=== PATIENT | male | born 1945 | race Caucasian/White ===

== ENCOUNTER 2020-08-21 20:29 | Inpatient (IN) | payer MEDICARE ==
[~2020-08-21] VITALS: Ht 190.5 cm; Wt 167.9 kg
[~2020-08-21 20:29] MED LIST: CELEXA20 MG PO; GLUCOPHAGE850 MG PO; HCTZ12.5 MG PO; KEPPRA250 MG PO; KLONOPIN0.5 MG PO; MIRAPEX0.25 MG PO; NEURONTIN300 MG PO; NORVASC5 MG PO; PRINIVIL20 MG PO; REQUIP0.25 MG PO; TRIAMCINOLONE 080 GM TOP; VENTOLIN (2.5 MG/3 M INH
[2020-08-21 21:10] LABS: BASOPHIL 0.1 % (0-2); EOSINOPHIL 0 % (0-7); HCT 39.7 % (42.0-52.0); HGB 13.8 g/dl (13.2-18.0); LYMPHOCYTE 6.9 % (15-48); MCH 31.9 pg (25.0-31.0); MCHC 34.8 g/dL (32.0-36.0); MCV 91.9 fL (78.0-100.0); MONOCYTE 7.5 % (0-12); MPV 10.6 fL (6.0-9.5); NRBC 0; PLT 230 K/uL (150-400); RBC 4.32 M/uL (4.70-6.00); RDW 12.6 % (11.5-14.0); WBC 12.2 K/uL (4.0-10.5)
[2020-08-21 21:14] LABS: INR 1.23 (0.9-1.2); PROTHROMBIN TIME 14.7 SECONDS (11.4-13.6)
[2020-08-21 21:15] LABS: PTT 34.8 SECONDS (22.2-34.7)
[2020-08-21 21:31] LABS: ALBUMIN 3.9 g/dL (3.4-5.0); ALKALINE PHOSHATASE 60 U/L (46-116); ALT 97 U/L (16-63); AST 119 U/L (15-37); BILIRUBIN - TOTAL 1.1 mg/dL (0.2-1.0); BUN 53 mg/dL (7-18); BUN/CREAT RATIO (CALC) 38.7 RATIO; CHLORIDE 96 mmol/L (98-107); CO2 (BICARBONATE) 20 mmol/L (21-32); CREATININE 1.37 mg/dL (0.67-1.17); GLOBULIN (CALCULATION) 4.1 g/dL; GLUCOSE 325 mg/dL (74-106); POTASSIUM 5.3 mmol/L (3.5-5.1)
[2020-08-21 21:34] LABS: LACTIC ACID 2.4 mmol/L (0.4-1.9)
[2020-08-21 21:36] LABS: PRO-BNP 125 pg/mL (<450)
[2020-08-21 22:41] LABS: BILIRUBIN NEGATIVE (NEGATIVE); BLOOD 2+ Ery/uL (NEGATIVE); CLARITY CLEAR (CLEAR); COLOR YELLOW (YELLOW); GLUCOSE (U) 3+ mg/dL (NORMAL); LEUKOCYTES NEGATIVE Leu/uL (NEGATIVE); NITRITE NEGATIVE (NEGATIVE); PROTEIN TRACE (LOW) mg/dL (NEGATIVE); SPECIFIC GRAVITY 1.025 (1.001-1.030); UROBILINOGEN 0.2 mg/dL (0.2-1.0); pH 5.5 (5.0-9.0)
[2020-08-21 22:44] LABS: ECSTASY (MDMA) NEGATIVE (NEGATIVE); MARIJUANA (THC) NEGATIVE (NEGATIVE); METHADONE NEGATIVE (NEGATIVE); OPIATES NEGATIVE (NEGATIVE)
[2020-08-21 22:45] LABS: AMPHETAMINES NEGATIVE (NEGATIVE); BARBITURATES NEGATIVE (NEGATIVE); OXYCODONE NEGATIVE (NEGATIVE)
[2020-08-21 22:47] LABS: AMORPHOUS URATES CRYSTALS TRACE; SQUAMOUS EPITHELIAL CELLS RARE
[2020-08-22 02:26] LABS: CORONAVIRUS 2019 SARS-COV-2 NEGATIVE (NEGATIVE); INFLUENZA A NAA NEGATIVE (NEGATIVE)
[2020-08-22 05:44] LABS: MAGNESIUM 1.9 mg/dL (1.8-2.4)
[2020-08-22 14:38] LABS: BASOPHIL 0.1 % (0-2); EOSINOPHIL 0.1 % (0-7); HCT 36.5 % (42.0-52.0); HGB 12.2 g/dl (13.2-18.0); LYMPHOCYTE 9.2 % (15-48); MCH 31.8 pg (25.0-31.0); MCHC 33.4 g/dL (32.0-36.0); MCV 95.1 fL (78.0-100.0); MONOCYTE 7.5 % (0-12); MPV 10.9 fL (6.0-9.5); NEUTROPHIL 82.8 % (41-80); NRBC 0; PLT 188 K/uL (150-400); RBC 3.84 M/uL (4.70-6.00); RDW 12.7 % (11.5-14.0)
[2020-08-22 15:09] LABS: ALBUMIN 3.1 g/dL (3.4-5.0); BILIRUBIN - TOTAL 0.7 mg/dL (0.2-1.0); BUN/CREAT RATIO (CALC) 34.3 RATIO; CREATININE 0.99 mg/dL (0.67-1.17); FOLIC ACID (SERUM) 14.5 ng/mL (8.6-58.9); GLOBULIN (CALCULATION) 3.2 g/dL; MAGNESIUM 1.9 mg/dL (1.8-2.4); POTASSIUM 4.7 mmol/L (3.5-5.1); TOTAL PROTEIN 6.3 g/dL (6.4-8.2)
--- NOTE | 2020-08-22 15:35 | NUR ---
08/22/20 Mr. Higuera lives alone. He has a wc, s. chair, 3in1, rw, and lift chair. He is requiring 3 persons to assist with transfers currently. He also has decubiti and cellulitis. Mr. Higuera agrees to [facility] for short term [facility]. He has chosen [facility], [facility], and [facility] and [facility] as his 3rd choice. - A request was made for OT/PT orders.
[2020-08-23 04:27] LABS: BASOPHIL 0.3 % (0-2); EOSINOPHIL 1.5 % (0-7); HCT 34.5 % (42.0-52.0); HGB 11.6 g/dl (13.2-18.0); LYMPHOCYTE 19.7 % (15-48); MCH 31.7 pg (25.0-31.0); MCHC 33.6 g/dL (32.0-36.0); MCV 94.3 fL (78.0-100.0); MONOCYTE 9.9 % (0-12); MPV 10.5 fL (6.0-9.5); NEUTROPHIL 68.1 % (41-80); NRBC 0; PLT 174 K/uL (150-400); RBC 3.66 M/uL (4.70-6.00); RDW 12.6 % (11.5-14.0); WBC 5.9 K/uL (4.0-10.5)
[2020-08-23 04:54] LABS: ALBUMIN 2.7 g/dL (3.4-5.0); BILIRUBIN - TOTAL 0.5 mg/dL (0.2-1.0); BUN/CREAT RATIO (CALC) 26.5 RATIO; CREATININE 0.83 mg/dL (0.67-1.17); GLOBULIN (CALCULATION) 3.1 g/dL; POTASSIUM 4.4 mmol/L (3.5-5.1); TOTAL PROTEIN 5.8 g/dL (6.4-8.2)
[2020-08-24 06:51] LABS: BASOPHIL 0.5 % (0-2); EOSINOPHIL 2.2 % (0-7); HCT 34.1 % (42.0-52.0); HGB 11.3 g/dl (13.2-18.0); MCH 31.7 pg (25.0-31.0); MCHC 33.1 g/dL (32.0-36.0); MCV 95.5 fL (78.0-100.0); MONOCYTE 11.4 % (0-12); MPV 10.6 fL (6.0-9.5); NEUTROPHIL 60.6 % (41-80); NRBC 0; PLT 206 K/uL (150-400); RBC 3.57 M/uL (4.70-6.00); RDW 12.4 % (11.5-14.0); WBC 6.4 K/uL (4.0-10.5)
[2020-08-24 07:15] LABS: ALBUMIN 2.5 g/dL (3.4-5.0); BILIRUBIN - TOTAL 0.4 mg/dL (0.2-1.0); CREATININE 0.79 mg/dL (0.67-1.17); GLOBULIN (CALCULATION) 3.5 g/dL; MAGNESIUM 1.7 mg/dL (1.8-2.4); POTASSIUM 4.3 mmol/L (3.5-5.1)
--- NOTE | 2020-08-24 16:37 | NUR ---
08/24/20 [facility] has agreed to accept Mr. Higuera pending insurance approval.
--- NOTE | 2020-08-26 11:54 | NUR ---
08/26/20 Admission to [facility] continues to be pending insurance approval. - Dr. Dr. Fair reports that Dr. Olmedo will be consulting re: wound.
--- NOTE | 2020-08-27 10:33 | NUR ---
08/27/20 [facility] has received insurance approval for admission today. Dr. Fair continues to wait on culture results.
[2020-08-27] MEDS ORDERED: CLONAZEPAM0.5 MG PO (14:45)
[2020-08-27] MEDS ORDERED: NEURONTIN300 MG PO (14:45)
[2020-08-27] MEDS ORDERED: LEVAQUIN750 MG PO (14:45)
== END 2020-08-27 17:58 | DRG 871 ==
LOC: FER 20:29 → FMS 08-22 02:42 → FTCU 08-22 02:42 → FMS 08-26 09:38
PROVIDERS: Emergency Medicine Emergency Medical Services; Hospitalist; Internal Medicine; ADMIT Allergy & Immunology Allergy
DX: A41.89 Other specified sepsis (principal); G93.41 Metabolic encephalopathy; L89.323 Pressure ulcer of left buttock, stage 3; M62.82 Rhabdomyolysis; I69.354 Hemiplegia and hemiparesis following cerebral infarction affecting left non-dominant side; N17.9 Acute kidney failure, unspecified; B37.49 Other urogenital candidiasis; R65.20 Severe sepsis without septic shock; E11.9 Type 2 diabetes mellitus without complications; Z20.822 Contact with and (suspected) exposure to COVID-19; I10 Essential (primary) hypertension; K21.9 Gastro-esophageal reflux disease without esophagitis; E78.00 Pure hypercholesterolemia, unspecified; J44.9 Chronic obstructive pulmonary disease, unspecified; E86.0 Dehydration; E86.9 Volume depletion, unspecified; G40.909 Epilepsy, unspecified, not intractable, without status epilepticus; N49.2 Inflammatory disorders of scrotum; B37.2 Candidiasis of skin and nail; L89.312 Pressure ulcer of right buttock, stage 2; L89.626 Pressure-induced deep tissue damage of left heel; Z88.6 Allergy status to analgesic agent; Z88.1 Allergy status to other antibiotic agents; Z79.84 Long term (current) use of oral hypoglycemic drugs; Z79.899 Other long term (current) drug therapy; W18.2XXA Fall in (into) shower or empty bathtub, initial encounter
CPT/HCPCS: 36415; 36600; 70450; 70551; 71045; 71250; 72125; 76870; 80053; 80061; 80202; 80305; 81001; 82550; 82746; 82803; 82962; 83605; 83735; 83880; 84145; 84484; 85025; 85610; 85730; 87040; 87077; 87088; 87186; 92526; 93005; 94640; 94664; 97162; 97166; 97530; 97530-GP; 97535; G0480; J1650; J1956; J2185; J3370; J3475; J7030; J7040; J7050; U0002

== ENCOUNTER 2020-09-16 17:50 | Day surgery (SDCO) | payer MEDICARE ==
[~2020-09-16] VITALS: Ht 190.5 cm; Wt 111.6 kg
[~2020-09-16 17:50] MED LIST changes: +CLONAZEPAM0.5 MG PO; +LEVAQUIN750 MG PO
[2020-09-16 21:16] LABS: BASOPHIL 0.2 % (0-2); EOSINOPHIL 1.1 % (0-7); HCT 37.2 % (42.0-52.0); HGB 12.5 g/dl (13.2-18.0); LYMPHOCYTE 28.4 % (15-48); MCH 31.8 pg (25.0-31.0); MCHC 33.6 g/dL (32.0-36.0); MCV 94.7 fL (78.0-100.0); MONOCYTE 7.8 % (0-12); MPV 10.3 fL (6.0-9.5); NRBC 0; PLT 195 K/uL (150-400); RBC 3.93 M/uL (4.70-6.00); RDW 12.4 % (11.5-14.0); WBC 8.7 K/uL (4.0-10.5)
[2020-09-16 21:33] LABS: BUN/CREAT RATIO (CALC) 20.8 RATIO; CREATININE 2.21 mg/dL (0.67-1.17); POTASSIUM 4.2 mmol/L (3.5-5.1)
[2020-09-16 21:55] LABS: CORONAVIRUS 2019 SARS-COV-2 NEGATIVE (NEGATIVE); INFLUENZA A NAA NEGATIVE (NEGATIVE)
[2020-09-17 05:41] LABS: BASOPHIL 0.2 % (0-2); EOSINOPHIL 2.6 % (0-7); HCT 35.6 % (42.0-52.0); HGB 11.9 g/dl (13.2-18.0); LYMPHOCYTE 29.8 % (15-48); MCH 31.8 pg (25.0-31.0); MCHC 33.4 g/dL (32.0-36.0); MCV 95.2 fL (78.0-100.0); MPV 10.9 fL (6.0-9.5); NEUTROPHIL 58.1 % (41-80); NRBC 0; PLT 177 K/uL (150-400); RBC 3.74 M/uL (4.70-6.00); RDW 12.2 % (11.5-14.0); WBC 5.8 K/uL (4.0-10.5)
[2020-09-17 06:09] LABS: BUN/CREAT RATIO (CALC) 24.5 RATIO; CREATININE 1.51 mg/dL (0.67-1.17); POTASSIUM 4.4 mmol/L (3.5-5.1)
--- NOTE | 2020-09-17 13:59 | NUR ---
MET WITH PT. HE REQUESTED A [facility] FACILITY. PT. WOULD LIKE TO GO TO [facility]. SENT REFERRAL THROUGH [facility]. SPOKE WITH MARIA DOLORES, REAL ESTATE AGENT/BROKER. ADVISED HER THAT PT. WOULD LIKE TO COME TO THE FACILITY MEDICAID PENDING. ALSO ADVISED HER THAT PT. WAS D/C FROM [facility]. AND PER [facility] WITH [facility] THEY WILL WILL NOT ACCEPT PT. 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 PER PT. HE OWES $25.00 A MONTH FOR CHILD SUPPORT. MARIA DOLORES REQUESTED THAT I ALSO FAX HER THE CLINICAL INFORMATION. FAXED TO [phone].
[2020-09-18 06:14] LABS: BASOPHIL 0.5 % (0-2); EOSINOPHIL 1.6 % (0-7); HCT 38.6 % (42.0-52.0); HGB 13.1 g/dl (13.2-18.0); LYMPHOCYTE 30.3 % (15-48); MCH 31.6 pg (25.0-31.0); MCHC 33.9 g/dL (32.0-36.0); MCV 93.2 fL (78.0-100.0); MONOCYTE 8.8 % (0-12); MPV 10.4 fL (6.0-9.5); NEUTROPHIL 58.5 % (41-80); NRBC 0; PLT 167 K/uL (150-400); RBC 4.14 M/uL (4.70-6.00); RDW 11.9 % (11.5-14.0); WBC 6.1 K/uL (4.0-10.5)
[2020-09-18 06:31] LABS: BUN/CREAT RATIO (CALC) 19.6 RATIO; CREATININE 1.02 mg/dL (0.67-1.17); POTASSIUM 4.6 mmol/L (3.5-5.1)
--- NOTE | 2020-09-18 09:50 | NUR ---
MET WITH PT AND HIS NEPHEW, SAMUEL ROQUE [phone]. SAMUEL ADVISED HIS UNCLE THAT HE NEEDED TO GO THE NURSING FACILITY HE DIDN'T FEEL PT. NEEDED TO BE AT HOME BY HIMSELF. PT. DID AGREE TO GO THE NURSING FACILITY. SAMUEL ALSO ADVISED THAT PT OTHER NEPHEW, ALFONSO LILLY, CAN ALSO OFFER ASSISTANCE REGARDING PT. INFORMATION [phone]. [facility] AGREED TO ALLOW ME OR THE NURSING FACILITY TO BE ABLE TO TALK WITH HIS NEPHEWS, NATALI OR ALFONSO. TC FROM [facility] WITH [facility] [phone]. SHE ADVISED THAT THEY ARE WORKING ON PT. REFERRAL. SHE WANTED NAMES OF FAMILY THAT CAN HELP THE PT WITH THE FINANCIAL INFORMATION. GAVE HER THE NAMES OF SAMUEL AND ALFONSO. ADVISED HER THAT [facility] DID GIVE PERMISSION FOR THE [facility] TO TALK WITH HIS NEPHEWS.
[2020-09-18] MEDS ORDERED: LEVAQUIN750 MG PO (14:37)
--- NOTE | 2020-09-18 16:43 | NUR ---
MET WITH PT, SAMUEL,NEPHEW:, JOSH, GENERAL TECHNICIAN; AND DR. GREER. SAMUEL DOES NOT WISH FOR PT. TO BE DISCHARGED HOME. DR. GREER EXPLAINED THAT PT. DOES NOT HAVE A MEDICAL REASON TO STAY IN THE HOSPITAL. I ASKED THE NEPHEW IF PT COULD STAY WITH HIM. SAMUEL STATED THAT PT. CANNOT GO HOME WITH HIM HE HAS STEPS. I INQUIRED ABOUT ANY OTHER FAMILY. SAMUEL SAID THAT HE HE DOESN'T KNOW OF ANYONE. SAMUEL DID MENTION THAT PT.'S EX- HAS OFFERED FOR PT TO COME TO HER HOME IN [place]. SAMUEL STATED THAT WOULD BE UP TO PT. IF HE WANTS TO GO TO HER HOME. PT HAS BEEN DISCHARGED AND THE NEPHEW DID LEAVE WITH THE PT. PT DOES HAVE A ROLLING WALKER AND WHEELCHAIR. JOSH, GENERAL TECHNICIAN, WILL ADVISE [facility] OF THIS SITUATION.
--- NOTE | 2020-09-18 16:46 | NUR ---
THIS NURSE WENT TO BEDSIDE AND WENT OVER DISCHARGE PAPERWORK, PATIENT VERBILIZED UNDERSTANDING OF ISSUES WITH PLACEMENT AND SIGNED DISCHARGE PAPERWORK. STAFF ASSISTED PATIENT TO GET DRESSED AND INTO W/C. THE STAFF AND PATIENT WAS COMING UP THE SANDERS TO GET ON THE ELEVATOR, THE PATIENT'S NEPHEW GOT OFF THE ELEVATOR AND SAID "HE CAN NOT GO HOME, I NEED TO SPEAK TO A EXTRA GANG SUPERVISOR OR SOMEONE." I CALLED ONEYDA ROJASTEACHER SELECTION SPECIALIST AND DR. GREER TO DISCUSS THE REASONS FOR DISCHARGE. AFTER DISCUSSION THE NEPHEW WAS IRRATE AND TOOK THE PATIENT DOWN THE ELEVATOR IN W/C AND WOULD NOT LET STAFF ASSIST. HE GOT ON THE ELEVATOR HE STATED THAT HE WAS "JUST GOING TO [facility] AND CALL THE NEWS". TEACHER SELECTION SPECIALIST(JOSH) AND CRYSTAL WATCHED THE NEPHEW PUT THE PATIENT IN THE CAR WITHOUT ISSUE
--- NOTE | 2020-09-18 17:18 | NUR ---
TC TO [facility] WITH [facility] SHE IS IN AGREEMENT TO HAVE SOMEONE CHECK ON PT. UNTIL HE CAN GO TO [facility]. FAXED [facility] REFERRAL TO [phone].
--- NOTE | 2020-09-18 17:21 | NUR ---
MADE APS REFERRAL REGARDING PT. LIVING ALONE AND NO AIR CONDITIONING. REFERRAL NUMBER IS [id number].
--- NOTE | 2020-09-19 10:09 | NUR ---
SPOKE TO DR. GREER IN REGARDS TO MR. TRIPP- HE CONFIRMED HE FELT IT WAS AN APPROPRIATE OBSERVATION ADMISSION I DID CALL AND CHECK ON MR. TRIPP THIS AM AT [phone]. SPOKE TO MR TRIPP HE SAID HE WAS SITTING UP IN A CHAIR AND THAT HOME HEALTH HAD NOT CALLED HIM YET BUT HE ANTICIPATED THEY WOULD CALL TODAY. HE VERBALIZED THAT [facility] WOULD CALL HIM ONCE THEY HAD A DETERMINATION ON THE STATUS OF ADMISSION TO THEIR FACILITY. HE WAS VERY UPBEAT ON THE PHONE AND WAS IN GOOD SPIRITS. HE VERBALIZED HE WAS FINE. THANKED ME FOR MY CALL
== END 2020-09-18 16:20 | disposition home health service (06) ==
LOC: FER 17:50 → FMS 22:22
PROVIDERS: Nurse Practitioner; Nurse Practitioner Family; ADMIT Allergy & Immunology Allergy
DX: S91.105A Unspecified open wound of left lesser toe(s) without damage to nail, initial encounter (principal); S91.102A Unspecified open wound of left great toe without damage to nail, initial encounter; E11.9 Type 2 diabetes mellitus without complications; R29.6 Repeated falls; R53.81 Other malaise; G40.909 Epilepsy, unspecified, not intractable, without status epilepticus; J44.9 Chronic obstructive pulmonary disease, unspecified; I69.354 Hemiplegia and hemiparesis following cerebral infarction affecting left non-dominant side; I10 Essential (primary) hypertension; K21.9 Gastro-esophageal reflux disease without esophagitis; E78.5 Hyperlipidemia, unspecified; Z87.891 Personal history of nicotine dependence; Z88.5 Allergy status to narcotic agent; Z88.1 Allergy status to other antibiotic agents; Z20.822 Contact with and (suspected) exposure to COVID-19; X58.XXXA Exposure to other specified factors, initial encounter
CPT/HCPCS: 36415; 36600; 71045; 73590; 73630; 80048; 82550; 82803; 82962; 83036; 84484; 85025; 86140; 97162; 97166; 97530-GP; 97535; G0378; J1650; J7030; J7120; U0002

== ENCOUNTER 2020-09-22 17:24 | Day surgery (SDCO) | payer MEDICARE ==
[~2020-09-22] VITALS: Ht 190.5 cm; Wt 112.7 kg
[2020-09-22 17:57] LABS: BASOPHIL 0.3 % (0-2); EOSINOPHIL 0.5 % (0-7); HCT 36.4 % (42.0-52.0); HGB 12.3 g/dl (13.2-18.0); LYMPHOCYTE 15.7 % (15-48); MCHC 33.8 g/dL (32.0-36.0); MCV 94.8 fL (78.0-100.0); MONOCYTE 5.9 % (0-12); MPV 10.2 fL (6.0-9.5); NEUTROPHIL 76.8 % (41-80); NRBC 0; PLT 181 K/uL (150-400); RBC 3.84 M/uL (4.70-6.00); RDW 12.3 % (11.5-14.0); WBC 9.2 K/uL (4.0-10.5)
[2020-09-22 18:24] LABS: ALBUMIN 3.1 g/dL (3.4-5.0); BILIRUBIN - TOTAL 0.2 mg/dL (0.2-1.0); BUN/CREAT RATIO (CALC) 17.6 RATIO; CREATININE 1.36 mg/dL (0.67-1.17); GLOBULIN (CALCULATION) 3.3 g/dL; LACTIC ACID 2.5 mmol/L (0.4-1.9); POTASSIUM 4.5 mmol/L (3.5-5.1); TOTAL PROTEIN 6.4 g/dL (6.4-8.2)
[2020-09-22 19:03] LABS: BILIRUBIN NEGATIVE (NEGATIVE); BLOOD NEGATIVE Ery/uL (NEGATIVE); CLARITY CLEAR (CLEAR); COLOR YELLOW (YELLOW); GLUCOSE (U) 1+ mg/dL (NORMAL); LEUKOCYTES NEGATIVE Leu/uL (NEGATIVE); NITRITE NEGATIVE (NEGATIVE); PROTEIN NEGATIVE (NEGATIVE); SPECIFIC GRAVITY >=1.030 (1.001-1.030); UROBILINOGEN 0.2 mg/dL (0.2-1.0); pH 5.5 (5.0-9.0)
--- NOTE | 2020-09-22 20:59 | NUR ---
PT STATED HE HAS NO ASSISTANCE AT HOME AND PRESENTED TO THE UNIT UNBATHED AND NEGLECTED IN HYGIENE STATED HAS NO ONE TO ASSIST HIM. PT STATED HE WAS TO HAVE [facility] BUT SOMEHOW WAS NOT ARRANGED.
[2020-09-23 06:08] LABS: BASOPHIL 0.3 % (0-2); EOSINOPHIL 2.2 % (0-7); HCT 36.2 % (42.0-52.0); HGB 12.1 g/dl (13.2-18.0); LYMPHOCYTE 31.3 % (15-48); MCH 31.3 pg (25.0-31.0); MCHC 33.4 g/dL (32.0-36.0); MCV 93.8 fL (78.0-100.0); MONOCYTE 7.8 % (0-12); MPV 10.3 fL (6.0-9.5); NEUTROPHIL 58.1 % (41-80); NRBC 0; PLT 158 K/uL (150-400); RBC 3.86 M/uL (4.70-6.00); RDW 12.2 % (11.5-14.0); WBC 6.3 K/uL (4.0-10.5)
[2020-09-23 06:12] LABS: ALBUMIN 2.8 g/dL (3.4-5.0); BILIRUBIN - TOTAL 0.2 mg/dL (0.2-1.0); BUN/CREAT RATIO (CALC) 23.1 RATIO; CREATININE 1.04 mg/dL (0.67-1.17); GLOBULIN (CALCULATION) 3.2 g/dL; POTASSIUM 4.1 mmol/L (3.5-5.1)
--- NOTE | 2020-09-25 16:22 | NUR ---
09/25/20 Man[facility], [facility] [place], reports to have contacted insurance several times to be told the case is pending review. Ms. Hill reports to need additional documentation from family to proceed with accepting as Medicaid pending. Ms. Hill reports that she will reach out to the family.
--- NOTE | 2020-09-25 17:22 | NUR ---
09/25/20 [facility]as Hill reports, [facility] will accept Mr. Higuera this evening. Han Camilo nephdarrell, [phone], will arrange transportation. Please call report to: [phone] and fax DS to: [phone]. Report given to Dr. Harrison and MS ONUR Thomas.
== END 2020-09-25 19:46 ==
LOC: FER 17:24 → FMS 19:30
PROVIDERS: Emergency Medicine Emergency Medical Services; Nurse Practitioner; ADMIT Internal Medicine
DX: R55 Syncope and collapse (principal); R53.1 Weakness; E11.621 Type 2 diabetes mellitus with foot ulcer; L97.529 Non-pressure chronic ulcer of other part of left foot with unspecified severity; I10 Essential (primary) hypertension; G40.909 Epilepsy, unspecified, not intractable, without status epilepticus; K21.9 Gastro-esophageal reflux disease without esophagitis; J44.9 Chronic obstructive pulmonary disease, unspecified; E78.5 Hyperlipidemia, unspecified; Z87.891 Personal history of nicotine dependence; Z88.5 Allergy status to narcotic agent; Z88.1 Allergy status to other antibiotic agents; Z99.3 Dependence on wheelchair; Z79.84 Long term (current) use of oral hypoglycemic drugs; Z79.899 Other long term (current) drug therapy; Z20.822 Contact with and (suspected) exposure to COVID-19
CPT/HCPCS: 36415; 70450; 71045; 72125; 72170; 80053; 81003; 82550; 82962; 83605; 84484; 85025; 93005; 94010; 94640; 97161; 97166; 97535; G0378; J1650; J7030; U0002

== ENCOUNTER 2021-10-16 23:56 | Inpatient (IN) | payer MEDICARE, OTHER ==
[~2021-10-16] VITALS: Ht 190.5 cm; Wt 109.0 kg
[~2021-10-16 23:56] MED LIST changes: +METFORMIN HCL500 M3 PO
[2021-10-17 01:01] LABS: BASOPHIL 0.3 % (0-2); EOSINOPHIL 0 % (0-7); HCT 41.8 % (42.0-52.0); HGB 14.1 g/dl (13.2-18.0); LYMPHOCYTE 13.6 % (15-48); MCHC 33.7 g/dL (32.0-36.0); MONOCYTE 12.8 % (0-12); MPV 9.4 fL (6.0-9.5); NRBC 0; PLT 166 K/uL (150-400); RDW 12.3 % (11.5-14.0); WBC 6.3 K/uL (4.0-10.5)
[2021-10-17 01:28] LABS: ALBUMIN 3.2 g/dL (3.4-5.0); BILIRUBIN - TOTAL 0.3 mg/dL (0.2-1.0); BUN/CREAT RATIO (CALC) 19.4 RATIO; CREATININE 0.98 mg/dL (0.67-1.17); GLOBULIN (CALCULATION) 3.5 g/dL; POTASSIUM 4.2 mmol/L (3.5-5.1); TOTAL PROTEIN 6.7 g/dL (6.4-8.2)
[2021-10-17 05:49] LABS: BILIRUBIN NEGATIVE (NEGATIVE); BLOOD 3+ Ery/uL (NEGATIVE); CLARITY CLEAR (CLEAR); COLOR YELLOW (YELLOW); GLUCOSE (U) NORMAL (NORMAL); LEUKOCYTES NEGATIVE Leu/uL (NEGATIVE); NITRITE NEGATIVE (NEGATIVE); PROTEIN TRACE (LOW) mg/dL (NEGATIVE); SPECIFIC GRAVITY 1.015 (1.001-1.030); UROBILINOGEN 0.2 mg/dL (0.2-1.0)
[2021-10-17] MEDS ORDERED: BREO ELLIPTA 11 EACH INH (12:26)
[2021-10-17] MEDS ORDERED: LOTRIMIN30 ML TOP (12:33)
[2021-10-17] MEDS ORDERED: COMBIVENT RESPIM4 GM INH (12:35)
[2021-10-17] MEDS ORDERED: VITAMIN B-1000 MCG/1 IM (12:36)
[2021-10-17] MEDS ORDERED: DEPAKOTE SPRIN125 M2 PO (12:38)
[2021-10-17] MEDS ORDERED: TUSSIN CHE100 MG/5 M PO (12:40)
[2021-10-17] MEDS ORDERED: ENEMA133 M1 PR (12:45)
[2021-10-17] MEDS ORDERED: HUMALOG100 UNIT/1 SC (12:48)
[2021-10-17] MEDS ORDERED: OMEPRAZOLE 20MG20 MG PO (12:55)
[2021-10-17] MEDS ORDERED: PAXLOVID 150-11 EACH PO (12:57)
[2021-10-17] MEDS ORDERED: REFRESH CLASSI1 EACH EYEBOTH (12:59)
[2021-10-17] MEDS ORDERED: REQUIP1 MG PO (13:02)
[2021-10-17] MEDS ORDERED: REMERON15 MG PO (13:02)
[2021-10-17] MEDS ORDERED: SENOKOT8.6 MG PO (13:03)
[2021-10-18 06:02] LABS: BASOPHIL 0 % (0-2); EOSINOPHIL 0 % (0-7); HCT 42.9 % (42.0-52.0); HGB 14.8 g/dl (13.2-18.0); LYMPHOCYTE 12.1 % (15-48); MCH 32.1 pg (25.0-31.0); MCHC 34.5 g/dL (32.0-36.0); MCV 93.1 fL (78.0-100.0); MONOCYTE 6.8 % (0-12); MPV 9.9 fL (6.0-9.5); NEUTROPHIL 80.7 % (41-80); NRBC 0; PLT 199 K/uL (150-400); RBC 4.61 M/uL (4.70-6.00); WBC 7.7 K/uL (4.0-10.5)
[2021-10-18 08:51] LABS: BUN/CREAT RATIO (CALC) 28.6 RATIO; C-REACTIVE PROTEIN 3.6 mg/dL (<=0.90); CREATININE 0.91 mg/dL (0.67-1.17); MAGNESIUM 2.2 mg/dL (1.8-2.4); POTASSIUM 4.5 mmol/L (3.5-5.1)
--- NOTE | 2021-10-18 16:17 | NUR ---
10/18/21 Mr. Higuera was admitted from [place]. Caren Tapia reports that a pre-auth will be required from insurance. Clinicals have been faxed to [place].
[2021-10-19 06:34] LABS: BASOPHIL 0.1 % (0-2); EOSINOPHIL 0 % (0-7); HCT 44.3 % (42.0-52.0); HGB 15.1 g/dl (13.2-18.0); LYMPHOCYTE 8.3 % (15-48); MCH 31.9 pg (25.0-31.0); MCHC 34.1 g/dL (32.0-36.0); MCV 93.5 fL (78.0-100.0); MONOCYTE 4.7 % (0-12); NEUTROPHIL 85.9 % (41-80); NRBC 0; PLT 230 K/uL (150-400); RBC 4.74 M/uL (4.70-6.00); WBC 10.4 K/uL (4.0-10.5)
[2021-10-19 06:58] LABS: BUN/CREAT RATIO (CALC) 32.6 RATIO; CREATININE 0.86 mg/dL (0.67-1.17); MAGNESIUM 2.2 mg/dL (1.8-2.4); POTASSIUM 4.4 mmol/L (3.5-5.1)
[2021-10-20] MEDS ORDERED: DEXAMETHASONE 2M2 MG PO (09:57)
[2021-10-20] MEDS ORDERED: NEURONTIN300 MG PO ×2 (09:57→10:21)
[2021-10-20] MEDS ORDERED: CLONAZEPAM0.5 MG PO ×2 (09:57→10:21)
== END 2021-10-20 14:50 | DRG 177 ==
LOC: FER 23:56 → FMS 23:56 → FER 10-17 07:08 → FMS 10-17 07:08
PROVIDERS: Internal Medicine; ADMIT Family Medicine
PROC: XW033E5 Introduction of Remdesivir Anti-infective into Peripheral Vein, Percutaneous Approach, New Technology Group 5 (ICD-10-PCS; principal; 2021-10-17)
PROC: 3E0333Z Introduction of Anti-inflammatory into Peripheral Vein, Percutaneous Approach (ICD-10-PCS; 2021-10-18)
PROC: 8E0ZXY6 Isolation (ICD-10-PCS; 2021-10-18)
DX: U07.1 COVID-19 (principal); I21.A1 Myocardial infarction type 2; J96.01 Acute respiratory failure with hypoxia; J96.02 Acute respiratory failure with hypercapnia; J44.1 Chronic obstructive pulmonary disease with (acute) exacerbation; I69.954 Hemiplegia and hemiparesis following unspecified cerebrovascular disease affecting left non-dominant side; E11.9 Type 2 diabetes mellitus without complications; I10 Essential (primary) hypertension; K21.9 Gastro-esophageal reflux disease without esophagitis; E78.5 Hyperlipidemia, unspecified; E66.9 Obesity, unspecified; Z68.30 Body mass index [BMI] 30.0-30.9, adult; Z88.5 Allergy status to narcotic agent; Z88.1 Allergy status to other antibiotic agents; Z87.891 Personal history of nicotine dependence; Z82.49 Family history of ischemic heart disease and other diseases of the circulatory system; Z79.84 Long term (current) use of oral hypoglycemic drugs; Z79.899 Other long term (current) drug therapy
CPT/HCPCS: 36415; 36600; 71045; 71275; 80048; 80053; 80061; 81001; 82803; 83735; 83880; 84145; 84484; 85025; 85379; 86140; 93005; 94010; 94640; 94664; 94667; 94668; 94760; 94762; 97162; 97166; 97535; C9399; J1100; J1650; J1815; J7050; J8540; U0002